=== PATIENT | female | born 1930 | race Caucasian/White ===

== ENCOUNTER 2019-09-12 13:03 | Inpatient (IN) ==
--- NOTE | 2019-09-12 14:15 | Diag Imaging Result Doc PS360 ---
EXAM: CHEST-2 VIEWS 09/12/2019 HISTORY: edema TECHNIQUE: PA and lateral chest COMMENT: There are bilateral pleural effusions. There is worsened bibasilar atelectasis compared to 07/04/2015. There is mild cardiomegaly. IMPRESSION: Atelectasis versus pneumonia with bilateral pleural effusions. The possibility of pulmonary edema cannot be excluded. Electronically signed by Azael Saul 09/12/2019 2:13 PM
[2019-09-12] MEDS ORDERED: LASIX IV ONE (14:20)
[2019-09-12 14:28] LABS: BASO# 0.01 X1000 (0.0-0.2); BASO% 0.3 % (0.0-0.8); EOS# 0.03 X1000 (0.0-0.7); EOS% 0.8 % (0.0-10.0); HEMATOCRIT 33.9 % (37.0-47.0); HEMOGLOBIN 10.5 g/dL (12.0-16.0); LYMPH# 0.86 X1000 (1.2-3.4); LYMPH% 22.9 % (20.5-51.1); MCH 27.4 PG (27-31); MCV 88.5 FL (81-99); MONO# 0.45 X1000 (0.11-0.59); MPV 10.8 FL (7.4-10.4); PLT 236 X1000 (130-400); RBC 3.83 XMIL (4.2-5.4); RDW 14.9 % (11.5-14.5); WBC 3.75 X1000 (4.8-10.8)
[2019-09-12 15:01] LABS: AGAP 10; ALB/GLOB RATIO 1.2; ALKALINE PHOSPHATASE 64 U/L (32-104); BUN 17 mg/dL (8-22); CALCIUM 8.7 mg/dL (8.8-10.2); CHLORIDE 97 mmol/L (98-107); COSMO 280; CREATININE 0.6 mg/dL (0.5-0.9); ESTIMATED GFR > 60; GLUCOSE 122 mg/dL (70-104); GOT 16 U/L (10-30); GPT 14 U/L (10-36); POTASSIUM 5.1 mmol/L (3.5-5.1); SODIUM 139 mmol/L (136-145); TCO2 32 mmol/L (25-35); TOTAL BILIRUBIN 0.69 mg/dL (0.20-1.00); TOTAL PROTEIN 7.4 g/dL (6.3-8.3)
[2019-09-12 15:11] LABS: INR 1.02; PROTIME 13.5 Seconds (11.0-16.0)
--- NOTE | 2019-09-12 15:32 | PROVIDER DOCUMENTATION ---
This chart was entered by Renea Banegas Scribe, acting as scribe for Apple Jauregui MD. HPI-General Adult - General Chief Complaint: Edema Stated Complaint: EDEMA/LEGS,DIABETIC Time Seen by Provider: 09/12/19 13:27 Source: patient Allergies/Adverse Reactions: Patient Allergies Allergy/AdvReac Type Severity Reaction Status Date / Time Penicillins Allergy HIVES Verified 09/12/19 14:11 Home Medications: Home Medication List Medication Instructions Recorded Confirmed Last Taken Type LISINOpril [Prinivil] 10 mg PO BID #0 tablet 11/28/14 09/12/19 04/24/16 Rx Metformin [Glucophage] 500 mg PO BID CC 07/04/15 09/12/19 04/24/16 History Furosemide [Lasix] 40 mg PO BID 14 Days #14 tab 09/12/19 Unknown Rx Potassium Chloride E.r. [Klor-Con] 40 meq PO DAILY #28 tab 09/12/19 Unknown Rx - History of Present Illness -Gen Adult Nature of Presenting Problems: Patient is an 89 y/o female presenting to the ED today c/o bilateral leg swelling. Patient reports onset of symptoms Thursday. Patient states she has been taking Lasix 40 mg but only intermittently. Patient reports she has taken the Lasix daily since onset. Patient reports she has also experienced some SOB and orthopnea. Patient c/o chills but has not checked her temperature to assess for fever. Patient denies history of CHF. Patient denies all other signs/symptoms. Location of Pain/Injury: reports: lower extremity (bilateral) Onset/Duration: reports: 2 days ago Associated Symptoms: reports: shortness of breath, other (edema bilateral lower extremities, orthopnea) Similar Symptoms Previously?: No Recently seen or treated by another doctor?: No Review of Systems - Adult - REVIEW OF SYSTEMS - ADULT Constitutional: reports: chills. denies: fever Eyes: reports: no symptoms reported Ears, Nose, Mouth & Throat: reports: no symptoms reported Cardiovascular: reports: edema, orthopnea. denies: chest pain Respiratory: reports: cough, shortness of breath Gastrointestinal: reports: no symptoms reported Genitourinary: reports: no symptoms reported Musculoskeletal: reports: no symptoms reported Integumentary: reports: no symptoms reported Neurological: reports: no symptoms reported Psychiatric: reports: no symptoms reported Endocrine: reports: no symptoms reported Hematologic/Lymphatic: reports: no symptoms reported Allergic/Immunologic: reports: no symptoms reported All Other Systems: Reviewed and Negative Past History - Adult - PAST MEDICAL HISTORY-ADULT Review of Records: reports: Old Records Reviewed, Nursing Assessment Review, Medications Reviewed, Social history reviewed & non-contributory. Major Childhood Illnesses: reports: denies history Cardiovascular: reports: denies history, HTN Respiratory: reports: denies history Gastrointestinal: reports: denies history Obstetrical/Gynecological: reports: denies history Genitourinary: reports: denies history Musculoskeletal: reports: denies history Neurological: reports: denies history Endocrine/Immune: reports: Diabetes Other Conditions: reports: denies history - PRIOR SURGERIES/PROCEDURES Surgical/Procedure History: reports: , other (cataract) - PRIOR HOSPITALIZATIONS Prior Hospitalizations: reports: for other non-related - IMMUNIZATION STATUS Childhood Immunizations: See Nurse Assessment Flu Vaccine: See Nurse Assessment - FAMILY HISTORY Family History: reviewed, not pertinent Physical Exam-General - PHYSICAL EXAM-ADULT Initial Vital Signs Reviewed: Yes - CONSTITUTIONAL General Appearance: appears well, alert, no apparent distress - EYES Eyes: PERRL/EOMI - HEAD, EARS, NOSE, MOUTH & THROAT HENMT: normocephalic/atraumatic, moist mucous membranes, normal ENT inspection - NECK Neck: non-tender, full range of motion, supple - RESPIRATORY Respiratory: no respiratory distress, no accessory muscle use, crackles (at bases bilaterally) - CARDIOVASCULAR Cardiovascular: regular rate, rhythm, no gallop, systolic murmur - GASTROINTESTINAL (ABDOMEN) Abdominal Exam: non tender, soft - MUSCULOSKELETAL Back Exam: normal inspection, no CVA tenderness, no vertebral tenderness Extremity: normal range of motion, non-tender, normal gait, pedal edema (2-3+ pitting with oozing up to level of knees) - SKIN Integumentary: normal color, normal turgor, warm/dry - NEUROLOGIC Neurologic: grossly normal - PSYCHIATRIC Psych/Mental Status: normal mood/affect, normal thought content, normal thought process Progress - PLAN OF CARE/RESULTS Progress/Plan/Lab Results: Vital Signs - 8 hr 09/12/19 13:14 Temperature 97.6 F Pulse Rate 74 Respiratory Rate 20 Blood Pressure 146/81 O2 Sat by Pulse Oximetry 97 Dr Cortes had seen patient in the ED tracker and called to followup on her. We discussed results and he recommended DC with increasing her Lasix to BID and giving her potassium and following her up in 2 weeks. Patient initially ok with DC plan but then she became concerned and states that she sleeps sitting up in her wheelchair because she cannot get to her bed because there is too much stuff around it. She states that her son lives with her but is never there at her bedtime and with the lasix and her house crowded with boxes and stuff she cannot get around to get to the bathroom. I counseled her on the risk for coming in the hospital but she stated that she cannot go home, however she also stated that she is not interested in placement. She has home health. I called Dr Cortes back who spoke to the patient and he stated he would admit the patient. Further orders to be placed per him. Result Diagrams: 09/12/19 14:08 09/12/19 14:08 - XRAY 1 XRAY Study: Chest Impression: See EMR Report (EXAM: CHEST-2 VIEWS 09/12/2019 HISTORY: edema T ECHNIQUE: PA and lateral chest COMMENT: There are bilateral pleural effusions. There is worsened bibasilar atelectasis compared to 07/04/2015. There is mild cardiomegaly. IMPRESSION: Atelectasis versus pneumonia with bilateral pleural effusions. The possibility of pulmonary edema cannot be excluded. Electronically signed by Azael Saul 09/12/2019 2:13 PM 09/12/19 1413 Interpreting Physician: Azael Saul MD Dictated Date/Time: 09/12/19 1412 cc: Apple Jauregui MD; Santiago Cortes MD) Departure - Departure Date of Disposition Decision: 09/12/19 Time of Disposition Decision: 15:28 DIAGNOSIS: Congestive heart failure, Unsatisfactory living conditions Disposition: HOME 01 Certified Medical Emergency: Emergent Condition: Stable - Critical Care Note This patient required my direct & personal management of CC.: No Attestation - Physician/ HARRY Attestation Patient care was provided by Advanced Practice Provider:: No The physician spent face to face time with patient:: Yes Advanced Practice Provider documentation review:: Supervising physician onsite and consulted in the evaluation and care of this patient. The physician did have a face to face encounter with the patient. This chart was documented by the indicated yifanibe (Renea Banegas, Leonel) and accurately reflects the services I performed and decisions made by me, Apple Jauregui MD, as attested by the provider's signature.
[2019-09-12] MEDS ORDERED: ZOFRAN IV PRN (17:10)
[2019-09-12] MEDS ORDERED: TYLENOL PO PRN (17:10)
[2019-09-12] MEDS: LASIX IV SCH (18:39)
[2019-09-12] MEDS: GLUCOPHAGE PO SCH (18:52)
[2019-09-12] MEDS: PRINIVIL PO SCH (21:44)
[2019-09-13] MEDS: LASIX IV SCH ×2 (05:08→17:27)
[2019-09-13] MEDS: PRILOSEC PO SCH (06:42)
[2019-09-13 07:51] LABS: HEMOGLOBIN A1C 5.5 % (4.8-6.0)
--- NOTE | 2019-09-13 07:55 | EKG Report ---
Test Performed on : 09/13/2019 07:37:47 AM Test Reason : chest pain Blood Pressure : / mmHG Vent. Rate : 081 BPM Atrial Rate : 081 BPM P-R Int : 158 ms QRS Dur : 098 ms QT Int : 392 ms P-R-T Axes : 048 096 028 degrees QTc Int : 455 ms Sinus rhythm. with premature supraventricular complexes. Rightward axis Nonspecific ST abnormality Abnormal ECG When compared with ECG of 25-APR-2016 11:47, premature supraventricular complexes. are now present Confirmed by Margarita MARTÍNEZ, David ([id number]) on 09/13/2019 8:34:36 AM
[2019-09-13 08:05] LABS: AGAP 11; BUN 17 mg/dL (8-22); CALCIUM 8.6 mg/dL (8.8-10.2); CHLORIDE 95 mmol/L (98-107); CK PROFILE 52 U/L (24-173); COSMO 280; CREATININE 0.7 mg/dL (0.5-0.9); ESTIMATED GFR > 60; GLUCOSE 120 mg/dL (70-104); POTASSIUM 3.5 mmol/L (3.5-5.1); SODIUM 139 mmol/L (136-145); TCO2 33 mmol/L (25-35)
[2019-09-13 08:11] LABS: T4 7.65 ug/dL (4.60-12.00); TSH 1.43 uIUmL (0.27-4.20)
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
[2019-09-13] MEDS: GLUCOPHAGE PO SCH ×2 (09:31→17:27)
[2019-09-13] MEDS: PRINIVIL PO SCH ×3 (09:32→20:55)
--- NOTE | 2019-09-13 12:35 | PROGRESS NOTE ---
DATE: 09/13/2019 SUBJECTIVE: She says she feels a little better. She did not really feel like she ever really was real short of breath. Her legs are less swollen. OBJECTIVE: Vital Signs: She remains afebrile, temperature 98.1 degrees, pulse 69, respirations 15, blood pressure 101/61. HEENT: Pupils are equal and round. Lungs: Clear in all lung galvez. Cardiovascular: Regular rhythm and rate without murmur or S3. Abdomen: Soft. Skin: Warm and dry. ASSESSMENT AND PLAN: 1. Chronic venous insufficiency with increased swelling. There are no active ulcers or lesions and so continue to diurese. 2. Diabetes mellitus type 2. I think her sugars have been fairly well controlled. We did check a hemoglobin A1c, and it was 5.5, so she may not even have diabetes or just borderline diabetes. It has been well controlled. 3. Creatinine 0.7. Renal function looks good. 4. Cellulitis and I suspect most of that is just topical irritation. She is not on any antibiotic at this time, and I am going to continue present regimen. I will have physical therapy work with her, have social media assistant looking and see what our options are for discharge. cc: Santiago Cortes MD
--- NOTE | 2019-09-13 14:08 | ECHO REPORT ---
ORDER DATE: 09/13/2019 INDICATION: CHF, evaluate LV function. FINDINGS: 1. Right atrium is enlarged at 4.9 cm. 2. Mild tricuspid regurgitation. RV systolic pressure of 59, suggesting pulmonary hypertension. 3. The right ventricle was difficult to visualize but appears to have normal size and systolic function. 4. No clear evidence of pulmonic insufficiency. 5. Severe left atrial enlargement with a volume index of 72. 6. No evidence of mitral valve prolapse. There is heavy mitral annular calcification. There is flow acceleration across the mitral valve, suggesting a moderate degree of stenosis with a peak gradient of 14 and a mean of 6.6. The valve area was 2.5 cm2 by pressure half-time. There is mild mitral regurgitation. 7. Normal left ventricular size at 3.8 cm. Suggestion of mild left ventricular hypertrophy with a wall thickness of 1.3 cm. This was extremely difficult to estimate given the poor images. LV systolic function appears preserved and greater than or equal to 55%. 8. There is severe restriction in motion of the aortic valve leaflets or cusps with heavy calcification. The peak gradient across the valve is 74 with a mean of 54, suggesting severe aortic stenosis. There does not appear to be any significant degree of insufficiency. 9. The aorta was poorly visualized. 10. There appears to be a small anterior pericardial effusion with no evidence of tamponade-type physiology. cc: MD Santiago Llanes MD
[2019-09-13] MEDS ORDERED: NS 250 ML IV ONE (21:07)
[2019-09-13] MEDS ORDERED: NS 250 ML ONE (22:35)
[2019-09-14] MEDS: PRILOSEC PO SCH ×2 (06:08→09:59)
[2019-09-14] MEDS: PRINIVIL PO SCH ×2 (10:00→21:06)
[2019-09-14] MEDS: GLUCOPHAGE PO SCH ×2 (10:00→17:34)
--- NOTE | 2019-09-14 10:55 | PROGRESS NOTE ---
DATE: 09/14/2019 SUBJECTIVE: Ms. Cho says she is a little more short of breath today, but her feet have gone down quite a bit. In fact, there is no edema right now. OBJECTIVE: Vital Signs: Blood pressures, the last several, 110/58, 87/39, 115/50, and 120/53. Temp is 98.2 degrees. HEENT: Her pupils are equal and round. Lungs: Clear in all lung galvez. Neck: No distended neck veins. Cardiovascular: Regular rhythm and rate without murmur or S3. Abdomen: Soft. Extremities: No pedal edema. IMAGING: Echocardiogram done on 09/13/2019: Normal left ventricular size, preserved ejection fraction of greater than 55%, severe restriction in motion of the aortic valve, so she has peak gradient 74 and a mean of 54, suggesting severe aortic stenosis. Aortic valve was poorly visualized. ASSESSMENT AND PLAN: 1. Chronic venous insufficiency. She has responded to diuresis. 2. It appears that she has severe aortic stenosis. I do not think we will back down on her diuresis at this point, and may get Cardiology to weigh in. 3. Renal function looks good. 4. Cellulitis and irritation. That seems to have resolved. LABORATORY DATA: Her hematocrit is 33, hemoglobin is 10, white blood cell count 3750, platelet count 236,000. Blood sugars 138, 120, 193, and 116. Her blood work from yesterday shows sodium 139, potassium 3.5, chloride 95, BUN 17, creatinine 0.7. Blood sugars 154, 104, 120. cc: Santiago Cortes MD
--- NOTE | 2019-09-14 11:58 | Diag Imaging Result Doc PS360 ---
EXAM: CHEST-2 VIEWS HISTORY: chf TECHNIQUE: Two views COMPARISON: 09/12/2019 FINDINGS: The heart is enlarged and there is pulmonary edema. [id number] sized bilateral pleural effusions. These are slightly larger than on the prior exam. There is basilar atelectasis and there may be underlying infiltrates as well. IMPRESSION: Interval worsening. Electronically signed by Hansel Ramirez 09/14/2019 11:55 AM
[2019-09-14] MEDS ORDERED: CARDIZEM IV ONE (23:59)
[2019-09-15] MEDS ORDERED: CARDIZEM 100 MG/NS 100 MG/100 ML IVPB IV SCH (00:15)
[2019-09-15] MEDS: PRINIVIL PO SCH ×2 (00:26→08:13)
[2019-09-15 00:44] LABS: BASO# 0.01 X1000 (0.0-0.2); BASO% 0.2 % (0.0-0.8); HEMATOCRIT 31.2 % (37.0-47.0); HEMOGLOBIN 9.6 g/dL (12.0-16.0); LYMPH# 0.87 X1000 (1.2-3.4); LYMPH% 15.6 % (20.5-51.1); MCH 27.4 PG (27-31); MCHC 30.8 g/dL (33-37); MCV 88.9 FL (81-99); MONO# 0.66 X1000 (0.11-0.59); MONO% 11.8 % (1.7-9.3); MPV 10.4 FL (7.4-10.4); NEUT# 4.05 X1000 (1.4-6.5); NEUT% 72.4 % (42.2-75.2); PLT 209 X1000 (130-400); RBC 3.51 XMIL (4.2-5.4); RDW 14.7 % (11.5-14.5); WBC 5.59 X1000 (4.8-10.8)
[2019-09-15 01:27] LABS: AGAP 15; ALB/GLOB RATIO 1.1; ALBUMIN 3.2 g/dL (3.5-5.0); ALKALINE PHOSPHATASE 60 U/L (32-104); BUN 18 mg/dL (8-22); CALCIUM 8.5 mg/dL (8.8-10.2); CHLORIDE 96 mmol/L (98-107); CK TOTAL 39 U/L (24-173); COSMO 282; CREATININE 0.6 mg/dL (0.5-0.9); ESTIMATED GFR > 60; GLUCOSE 140 mg/dL (70-104); GOT 15 U/L (10-30); GPT 15 U/L (10-36); MAGNESIUM 1.9 mg/dL (1.5-2.7); POTASSIUM 3.4 mmol/L (3.5-5.1); SODIUM 139 mmol/L (136-145); TCO2 28 mmol/L (25-35); TOTAL BILIRUBIN 0.66 mg/dL (0.20-1.00); TOTAL PROTEIN 6.1 g/dL (6.3-8.3)
[2019-09-15 01:33] LABS: FREE T4 1.39 ng/dL (0.93-1.70); TSH 2.16 uIUmL (0.27-4.20)
--- NOTE | 2019-09-15 05:56 | EKG Report ---
Test Performed on : 09/15/2019 04:59:35 AM Test Reason : rhythm change Blood Pressure : / mmHG Vent. Rate : 083 BPM Atrial Rate : 083 BPM P-R Int : 150 ms QRS Dur : 098 ms QT Int : 374 ms P-R-T Axes : 034 084 015 degrees QTc Int : 439 ms Sinus rhythm. with marked sinus arrhythmia. Nonspecific T wave abnormality Abnormal ECG When compared with ECG of 14-SEP-2019 23:45, (Unconfirmed) Sinus rhythm. has replaced Atrial fibrillation. Vent. rate has decreased BY 47 BPM Confirmed by Shalom MARTÍNEZ, Cael Campos ([id number]) on 09/19/2019 9:24:59 AM
[2019-09-15] MEDS: PRILOSEC PO SCH (06:37)
--- NOTE | 2019-09-15 06:59 | Diag Imaging Result Doc PS360 ---
EXAM: CHEST-PORTABLE 09/15/2019 HISTORY: sob TECHNIQUE: AP portable at 0024 COMMENT: There is cardiomegaly and diffuse alveolar and interstitial opacity particularly in the lung bases. There are presumably some pleural fluid collections bilaterally. Compared to the previous examination of 09/14/2019, the pulmonary opacity is slightly worse. IMPRESSION: Worsened pulmonary edema and pleural effusions. Electronically signed by Azael Saul 09/15/2019 6:56 AM
[2019-09-15] MEDS: GLUCOPHAGE PO SCH (08:13)
[2019-09-15 09:41] LABS: AGAP 12; BUN 17 mg/dL (8-22); CALCIUM 8.6 mg/dL (8.8-10.2); CHLORIDE 93 mmol/L (98-107); COSMO 273; CREATININE 0.5 mg/dL (0.5-0.9); ESTIMATED GFR > 60; GLUCOSE 128 mg/dL (70-104); POTASSIUM 3.6 mmol/L (3.5-5.1); SODIUM 135 mmol/L (136-145); TCO2 30 mmol/L (25-35)
[2019-09-15] MEDS ORDERED: LASIX IV ONE ×2 (11:05→16:28)
[2019-09-15] MEDS ORDERED: LASIX IV SCH (11:15)
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
[2019-09-15] MEDS: LOPRESSOR PO SCH ×2 (11:35→20:40)
--- NOTE | 2019-09-15 16:11 | Diag Imaging Result Doc PS360 ---
EXAM: CT ANGIOGRM PULMONARY ARTERIES INDICATION: SOB/HI D-D TECHNIQUE: This exam was performed using automated exposure control, adjustment of mA or kV according to patient size, and/or use of iterative reconstruction technique. Thin section axial images and 3-D MIPS were obtained. COMPARISON: None. FINDINGS: There is no evidence of pulmonary embolism. The aorta is under opacified but there is no evidence of thoracic aortic aneurysm or dissection as imaged. There is extensive aortic atherosclerotic calcification. There is extensive coronary artery calcification. There is cardiomegaly. There are calcified subcarinal lymph nodes indicating prior granulomatous disease. There is a moderate-sized pericardial effusion. There are bilateral large pleural effusions. There is associated significant atelectasis bilaterally, mainly involving the lower lobes. There is interstitial thickening suggesting edema. There is mild patchy airspace opacity at both upper lobes but also probably represents edema. However, a component of pneumonitis is possible. Limited views of the upper abdomen are essentially unremarkable. There is extensive thoracic spondylosis. IMPRESSION: 1.Bibasilar large effusions with associated significant atelectasis. 2.Interstitial edema and mild patchy airspace infiltrates near the lung apices as detailed above. 3.Cardiomegaly with a moderate-sized pericardial effusion. 4.No evidence of pulmonary embolism. Electronically signed by Calixto Haywood 09/15/2019 4:09 PM
--- NOTE | 2019-09-15 17:20 | PROGRESS NOTE ---
DATE: 09/15/2019 SUBJECTIVE: Ms. Cho is actually feeling pretty good, breathing comfortably. She had to be moved last night because she went into atrial fibrillation with rapid ventricular rate. She is concerned about being on Cardizem since the blood pressure medicine. We have explained to her that her echocardiogram suggest very severe aortic stenosis. Cardiology has evaluated and has offered for her to pursue possible transvascular aortic replacement. She is not sure she wants to do this. At the present time she wants to continue to pursue trying to go home. OBJECTIVE: She remains afebrile, temperature 98.2 degrees, pulse 68, respirations 18, blood pressure 140/65. Pupils are equal and round. Lungs are clear in all lung galvez. Cardiovascular: Regular rhythm and rate without murmur or S3. LABORATORY DATA: Blood sugars 128, 127 and 107. DIAGNOSTIC DATA: Pulmonary arteriogram shows bibasilar lung effusions with associated significant atelectasis, interstitial edema and mild patchy air spaces near the lung apices; cardiomegaly; moderate-size pericardial effusion; no evidence of pulmonary embolism. ASSESSMENT AND PLAN: 1. An 89-year-old with history of diabetes, hyperlipidemia and hypertension, wheelchair-bound, who was admitted with weakness, increased work of breathing and orthopnea. X-ray reveals pulmonary edema. Given Lasix and improved symptomatically. She apparently went into atrial fibrillation last night. She is back in sinus rhythm at this time. 2. Paroxysmal atrial fibrillation. Started on Cardizem drip. It appears that she is in normal sinus rhythm with frequent premature atrial contractions. Cardiology was stating she did not have atrial fibrillation but multiple premature atrial contractions. 3. Echocardiogram showed severe aortic stenosis with peak gradient across the aortic valve of 74 mmHg, mean gradient 54 mmHg suggesting severe aortic stenosis. Mitral valve area was 2.5 cm2 by pressure half-time and mean gradient was 6 mmHg. Heavy mitral annular calcification. added beta-blockers and cut back on her lisinopril. Heart failure has significantly improved medically. She wants to contemplate whether she wants to pursue intravascular aortic replacement. I think she is inclined not to do it at this point. She is on Prinivil 10 mg daily, Lopressor 25 mg b.i.d. and metformin 500 mg b.i.d. Her chest x-ray from this morning, worsened pulmonary edema and pleural effusions, so I think we will give her Lasix 40 mg intravenous. She was given 1 dose this morning and will probably continue that. We will check another chest x-ray and electrolytes in the morning. We started physical therapy. I think her plan is still wants to go home with home health. cc: Santiago Cortes MD MTDD
[2019-09-16] MEDS: PRILOSEC PO SCH (06:27)
[2019-09-16 06:57] LABS: AGAP 12; BUN 14 mg/dL (8-22); CALCIUM 8.5 mg/dL (8.8-10.2); CHLORIDE 94 mmol/L (98-107); COSMO 274; CREATININE 0.5 mg/dL (0.5-0.9); ESTIMATED GFR > 60; GLUCOSE 102 mg/dL (70-104); MAGNESIUM 1.9 mg/dL (1.5-2.7); POTASSIUM 3.1 mmol/L (3.5-5.1); SODIUM 137 mmol/L (136-145); TCO2 31 mmol/L (25-35)
--- NOTE | 2019-09-16 07:21 | Diag Imaging Result Doc PS360 ---
EXAM: CHEST-PORTABLE INDICATION: CHF, aortic stenosis TECHNIQUE: One view COMPARISON: 09/15/2019 FINDINGS: Bilateral interstitial and airspace consolidations at the lower lung zones are approximately stable. Bilateral pleural fluid collections are grossly stable. No new consolidation is identified. Cardiac silhouette is stable. IMPRESSION: Stable chest. Electronically signed by Calixto Haywood 09/16/2019 7:18 AM
[2019-09-16] MEDS: LOPRESSOR PO SCH ×2 (08:55→20:22)
[2019-09-16] MEDS: PRINIVIL PO SCH (08:55)
[2019-09-16] MEDS: LASIX IV SCH (08:55)
[2019-09-16] MEDS ORDERED: LASIX PO SCH (09:00)
[2019-09-16] MEDS ORDERED: KLOR-CON PO ONE (14:07)
--- NOTE | 2019-09-16 18:24 | PROGRESS NOTE ---
DATE: 09/16/2019 SUBJECTIVE: Ms. Amaya just does not feel real good. Her breathing seems to be okay and at rest she does okay, but she would like to get up and stir around a little bit. She has a lot of questions about whether she should pursue aortic valve therapy. OBJECTIVE: Vital signs: She is afebrile, temperature 97.3 degrees, pulse 82, respirations 24, blood pressure today a little low at 80/50. It has been running a little higher. HEENT: Pupils are equal and round. Lungs: Clear in all lung galvez. Cardiovascular Exam: Regular rhythm and rate without murmur or S3. Urine output is 2100 mL. Blood sugar 113, 103, 125. Chest x-ray from today: Stable chest. Bilateral interstitial airspace consolidations in the lower lung zones approximately stable. Bilateral pleural fluid collections grossly stable. No new consolidation identified. She had a pulmonary arteriogram. No pulmonary embolism. She has bibasilar large effusions with associated significant atelectasis, interstitial edema, mild patchy airspace infiltrates in the lung apices and cardiomegaly, moderate-sized pericardial effusion. ASSESSMENT AND PLAN: 1. She has a history of diabetes, hyperlipidemia, hypertension. Wheelchair bound and had increased shortness of breath. Chest x-ray reveals pulmonary edema. The Lasix has improved her swelling in her legs significantly. Blood pressure dropping a little bit. I want to follow her renal function closely. 2. EKG shows normal sinus rhythm, frequent premature atrial contractions, so she did not really go in atrial fibrillation but frequent atrial contractions. 3. Echocardiogram shows severe aortic stenosis and consider her for transcatheter aortic valve replacement, and she is thinking about that. 4. Premature atrial contractions. She is on beta yumiko. 5. Hypertension. Cut back on her lisinopril. We will try and get her up. Continue physical therapy. Follow her electrolytes. cc: Santiago Cortes MD
[2019-09-17 05:54] LABS: BASO# 0.01 X1000 (0.0-0.2); BASO% 0.2 % (0.0-0.8); EOS# 0.06 X1000 (0.0-0.7); EOS% 1.3 % (0.0-10.0); HEMATOCRIT 33.8 % (37.0-47.0); HEMOGLOBIN 10.3 g/dL (12.0-16.0); LYMPH% 21.4 % (20.5-51.1); MCH 27.1 PG (27-31); MCHC 30.5 g/dL (33-37); MCV 88.9 FL (81-99); MONO# 0.69 X1000 (0.11-0.59); MONO% 14.8 % (1.7-9.3); MPV 10.2 FL (7.4-10.4); NEUT# 2.91 X1000 (1.4-6.5); NEUT% 62.3 % (42.2-75.2); PLT 249 X1000 (130-400); RDW 14.6 % (11.5-14.5); WBC 4.67 X1000 (4.8-10.8)
[2019-09-17 06:15] LABS: AGAP 7; BUN 17 mg/dL (8-22); CALCIUM 8.4 mg/dL (8.8-10.2); CHLORIDE 92 mmol/L (98-107); COSMO 271; CREATININE 0.6 mg/dL (0.5-0.9); ESTIMATED GFR > 60; GLUCOSE 122 mg/dL (70-104); MAGNESIUM 2.1 mg/dL (1.5-2.7); POTASSIUM 3.3 mmol/L (3.5-5.1); SODIUM 134 mmol/L (136-145); TCO2 35 mmol/L (25-35)
[2019-09-17] MEDS: PRILOSEC PO SCH (06:25)
[2019-09-17] MEDS: LASIX IV SCH (09:32)
[2019-09-17] MEDS: PRINIVIL PO SCH (09:33)
[2019-09-17] MEDS: LOPRESSOR PO SCH ×2 (09:33→20:09)
--- NOTE | 2019-09-17 13:37 | PROGRESS NOTE ---
DATE: 09/17/2019 SUBJECTIVE: She reports she does feel a little better today. Blood pressure seems to have come up a little bit. I did back down on her beta yumiko. Seems like her breathing is better, although she does still have some shortness of breath. OBJECTIVE: Vital signs: Remains afebrile, temperature 97.3 degrees, pulse 70, respirations 20, blood pressure 117/57. HEENT: Pupils are equal and round. Lungs: Clear in all lung galvez. Cardiovascular: Regular rhythm and rate without murmur or S3. Abdomen: Soft. Skin: Warm and dry. Urine output is 1700 mL. LABORATORY DATA: Blood sugars 125, 100 and 150, so sugars are well controlled. IMAGING: Chest x-ray from yesterday. Stable chest, bilateral interstitial and airspace consolidations at the lower lung zones and these appear stable. Bilateral pleural fluid collection appears stable as well. No new consolidation. ASSESSMENT AND PLAN: 1. Severe aortic stenosis. She is contemplating whether she wants to pursue aggressive therapy. I am encouraging her to at least go and listen to a cardiovascular surgeon and see if it is something she would be interested in, transvalvular aortic replacement. She does feel better. Seems to be doing a little bit better. Her blood pressures, the last several, 152/74, 93/52, 108/55, 117/57, so we are diuresing her with Lasix. 2. She appears to remain sinus rhythm. She was moved to [facility]. There was concern that she was having atrial fibrillation, however, this appeared to be sinus tachycardia with frequent PACs. 3. Premature atrial contractions. Aware. 4. Hypertension. REVIEW OF ORDERS: I do not see any change. I think she can move to the floor and keep her here another 48 hours. I am hoping to discharge her on Thursday. cc: Santiago Cortes MD
--- NOTE | 2019-09-17 14:20 | Diag Imaging Result Doc PS360 ---
EXAM: CHEST-2 VIEWS 09/17/2019 HISTORY: chf TECHNIQUE: PA and lateral chest COMMENT: There are bilateral pleural effusions. There is lower lobe opacity bilaterally which has improved somewhat since 09/16/2018. There is platelike atelectasis in the lingula. IMPRESSION: Improved pleural effusions and basilar opacities. Electronically signed by Azael Saul 09/17/2019 2:17 PM
--- NOTE | 2019-09-17 15:29 | CARDIOLOGY PROGRESS NOTE ---
DATE: 09/17/2019 SUBJECTIVE: She reports continued issues with shortness of breath. She has no complaints otherwise, no pain complaints. PHYSICAL: She is afebrile. Heart rates 70, blood pressure 117/57.General: She is in no acute distress. Cardiovascular: She has a 2/6 systolic murmur best heard at the right upper sternal border. She has no lower extremity edema. Chest: Clear to auscultation bilaterally. No increased work of breathing. Abdomen: Soft, nontender. PERTINENT DATA: Sodium 134, potassium 3.3, BUN 17, creatinine 0.6, her mag level is 2.1. ASSESSMENT: Ms. Cho is a 89-year-old female with severe aortic stenosis. PLAN: She continues on MIKAEL inhibitors, beta blockers and IV Lasix. She seems to be diuresing reasonably well. She has had limited symptom improvement. She is still contemplating possible TAVR. cc: MD Santiago Llanes MD
[2019-09-18] MEDS: PRILOSEC PO SCH (06:06)
[2019-09-18 06:38] LABS: AGAP 11; BUN 17 mg/dL (8-22); CALCIUM 8.4 mg/dL (8.8-10.2); CHLORIDE 95 mmol/L (98-107); COSMO 279; CREATININE 0.5 mg/dL (0.5-0.9); ESTIMATED GFR > 60; GLUCOSE 125 mg/dL (70-104); POTASSIUM 3.4 mmol/L (3.5-5.1); SODIUM 138 mmol/L (136-145); TCO2 32 mmol/L (25-35)
--- NOTE | 2019-09-18 06:52 | Diag Imaging Result Doc PS360 ---
EXAM: CHEST-PORTABLE 09/18/2019 HISTORY: CHF TECHNIQUE: AP portable at 0450 COMMENT: There is cardiomegaly. There are bilateral pleural effusions. There is worsening interstitial pulmonary edema compared to 09/17/2019. There continues to be atelectasis or pneumonia in both lower lobes and the lingula. IMPRESSION: Worsening pulmonary edema. Electronically signed by Azael Saul 09/18/2019 6:49 AM
[2019-09-18] MEDS: LOPRESSOR PO SCH ×2 (08:13→20:19)
[2019-09-18] MEDS: PRINIVIL PO SCH (08:13)
[2019-09-18] MEDS: GLUCOPHAGE PO SCH ×2 (08:13→17:26)
[2019-09-18] MEDS: LASIX IV SCH (08:13)
--- NOTE | 2019-09-18 13:20 | PROGRESS NOTE ---
DATE: 09/18/2019 SUBJECTIVE: Ms. Cho is feeling better today, and she decided that she would like to go to rehab, would like to go to [facility] if she can. OBJECTIVE: Vital Signs: Afebrile, temperature 98 degrees, pulse 70, respirations 16, blood pressure 103/50. HEENT: Pupils are equal and round. Lungs: Clear in all lung galvez. Cardiovascular: Regular rhythm and rate without murmur or S3. Abdomen: Soft. Skin: Warm and dry. IMAGING AND LABORATORY DATA: Blood sugars 110, 165, 116, 184. Chest x-ray: Worsening pulmonary edema on x-ray, bilateral pleural effusions. ASSESSMENT AND PLAN: 1. She has severe aortic stenosis. Continue angiotensin-converting enzyme inhibitors and beta blockers. Seems to be diuresing reasonably well. 2. General weakness, deconditioning, and underlying osteoarthritis. I think she would benefit from trying to go to rehab. 3. Remains in sinus rhythm with frequent premature atrial contractions. 4. Hypertension. Blood pressures look like they are doing well. She is on Prinivil 10 mg daily, metformin 500 mg twice daily, Lopressor 12.5 mg twice daily, and gets Lasix 40 mg every morning. cc: Santiago Cortes MD
[2019-09-19] MEDS: PRILOSEC PO SCH (06:05)
[2019-09-19 06:37] LABS: BASO# 0.07 X1000 (0.0-0.2); BASO% 1.4 % (0.0-0.8); EOS# 0.06 X1000 (0.0-0.7); EOS% 1.2 % (0.0-10.0); HEMATOCRIT 34.8 % (37.0-47.0); HEMOGLOBIN 10.6 g/dL (12.0-16.0); LYMPH% 22.6 % (20.5-51.1); MCH 27.7 PG (27-31); MCHC 30.5 g/dL (33-37); MCV 90.9 FL (81-99); MONO# 0.74 X1000 (0.11-0.59); MONO% 15.2 % (1.7-9.3); MPV 10.7 FL (7.4-10.4); NEUT% 59.6 % (42.2-75.2); PLT 224 X1000 (130-400); RBC 3.83 XMIL (4.2-5.4); RDW 14.7 % (11.5-14.5); WBC 4.87 X1000 (4.8-10.8)
[2019-09-19] MEDS: PRINIVIL PO SCH (10:04)
[2019-09-19] MEDS: GLUCOPHAGE PO SCH ×2 (10:04→17:35)
[2019-09-19] MEDS: LASIX IV SCH (10:04)
[2019-09-19] MEDS: LOPRESSOR PO SCH ×2 (10:04→20:57)
[2019-09-19] MEDS ORDERED: ASPIRIN PO SCH (11:15)
--- NOTE | 2019-09-19 11:50 | CARDIOLOGY PROGRESS NOTE ---
DATE: 09/19/2019 PROBLEM LIST: 1. Severe critical aortic stenosis with a peak gradient of the aortic valve of 74 mmHg, mean gradient of 54 mmHg, with severe critical aortic stenosis, mitral annular calcification severe with a mitral valve area of 2.5 cm2, mean gradient of 6 mmHg, ejection fraction 55%. 2. Recent congestive heart failure. 3. Diabetes. 4. Hypertension. DIAGNOSTIC DATA: She had a pulmonary arteriogram on 09/15/2019. Bilateral large pleural effusions with atelectasis, interstitial edema, suggestive of congestive heart failure. There was no pulmonary embolism. CURRENT LABORATORY EXAMINATION: Sodium 138, potassium 3.4, BUN 17, creatinine 0.7. WBC 4.87, hemoglobin 10.6, hematocrit 34.8, platelet count of 224,000. Chest x-ray on 09/18/2019 revealed persistent edema. PHYSICAL EXAMINATION: Blood pressure was 109/47. Cardiovascular: First and second heart sounds were heard. There was an ejection systolic murmur. Respiratory System: Bibasilar inspiratory crepitations. Abdomen: Soft, nontender. There was no guarding or rigidity. Bowel sounds were heard. Central Nervous System: Alert and was moving all 4 extremities. Examination of extremities revealed no pedal edema. CURRENT MEDICATIONS: Include: 1. Lasix 40 mg IV daily. 2. Prinivil 10 mg a day. 3. Metformin 500 mg p.o. b.i.d. 4. Metoprolol 12.5 mg p.o. b.i.d. 5. Omeprazole 40 mg a day. 6. Zofran as needed. 7. Aspirin 81 mg a day. ASSESSMENT AND PLAN: I had a detailed discussion with the patient and her family. She has persistent heart failure. However, has improved significantly and I have recommended that she consider transfer to [facility] for transcatheter aortic valve replacement evaluation. During this hospitalization, patient is willing to be transferred R/B/A explained in detail to patient and family. cc: MD Santiago Vasquez MD [facility]
--- NOTE | 2019-09-19 18:03 | PROGRESS NOTE ---
DATE: 09/19/2019 SUBJECTIVE: Ms. Downey, Dr. Snowden had discussed with the family and she wants to pursue trying to get her aortic valve replaced, a transaortic valvular replacement, so plan is to transfer her to [place]. OBJECTIVE: Vital Signs: Temperature is 98.2 degrees, pulse 77, respirations 18, blood pressure 84/42. Lungs: Clear anterolateral and posterior. Cardiovascular: Regular rhythm and rate without murmur or S3. Abdomen: Soft skin is warm and dry. ASSESSMENT AND PLAN: 1. Recommend she consider transfer to [place] for transcatheter aortic valve replacement during hospitalization. We will transfer her to [facility] and that is explained to the family. She has critical aortic stenosis. 2. Recent congestive heart failure. 3. Diabetes mellitus type 2. 4. Hypertension. 5. Osteoarthritis. 6. General weakness. cc: Santiago Cortes MD
[2019-09-19 20:59] VITALS: BP 95/58
--- NOTE | 2019-09-23 14:58 | DISCHARGE SUMMARY ---
ADMISSION DATE: 09/12/2019 DISCHARGE DATE: 09/19/2019 HISTORY: This is an 89-year-old white female patient of mine. She had more swelling in her feet and complaining of more shortness of breath, trouble getting around. Her friend was concerned, not able to walk and ambulate. She denied any chest pain. Denied palpitations. She has the usual swelling in her lower extremities and it seemed to be worse. PAST MEDICAL HISTORY: 1. Diabetes mellitus type 2. 2. Hyperlipidemia. 3. Hypertension. 4. Right forearm fracture in 1986. 5. Hip fracture, admitted back in November 2013. 6. 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 Eventually got elective total knee arthroplasty and has had difficulty with weightbearing and strength. HOSPITAL COURSE: So was admitted with chronic venous insufficiency, increased shortness of breath, and an echocardiogram found she had severe aortic stenosis. We followed her blood sugars with the diabetes and we diuresed her carefully and Cardiology was involved. Pulmonary arteriogram did not show any pulmonary embolism. Dr. Snowden for Cardiology evaluated and felt she may benefit from a transaortic valvular replacement and we began some physical therapy and she agreed to be transferred to [facility] for further evaluation for an aortic valve replacement and she was transferred on 09/19/2019 at 23:30. cc: Santiago Cortes MD
== END 2019-09-19 23:33 | disposition short-term general hospital (02) | DRG 293 ==
LOC: ED 13:03 → EDIPHOLD 17:02 → 3N 17:33 → 2N 09-15 00:46 → 1N 09-17 18:35
PROVIDERS: ADMIT Emergency Medicine; ATTEND Emergency Medicine

== ENCOUNTER 2019-10-11 15:07 | Inpatient (IN) ==
[2019-10-11] MEDS ORDERED: ASPIRIN PO ONE (15:23)
[2019-10-11] MEDS ORDERED: NS 1,000 ML IV ONE ×2 (15:24→18:31)
[2019-10-11] MEDS ORDERED: CORDARONE IV ONE ×2 (15:24→16:48)
[2019-10-11] MEDS ORDERED: LASIX IV ONE (15:25)
--- NOTE | 2019-10-11 15:28 | EKG Report ---
Test Performed on : 10/11/2019 3:16:16 PM Test Reason : afib Blood Pressure : / mmHG Vent. Rate : 142 BPM Atrial Rate : 136 BPM P-R Int : 000 ms QRS Dur : 094 ms QT Int : 314 ms P-R-T Axes : 000 112 -19 degrees QTc Int : 483 ms Atrial fibrillation. with rapid ventricular response. Right axis deviation Right ventricular hypertrophy Nonspecific ST and T wave abnormality Abnormal ECG When compared with ECG of 15-SEP-2019 04:59, Atrial fibrillation. has replaced Sinus rhythm. Vent. rate has increased BY 59 BPM Unconfirmed Result
--- NOTE | 2019-10-11 15:48 | Diag Imaging Result Doc PS360 ---
EXAM: CHEST-PORTABLE HISTORY: sob TECHNIQUE: Single view COMPARISON: 09/18/2019 FINDINGS: The lungs are well expanded. The heart remains enlarged. There are increased interstitial markings in the mid lungs and right base. These are actually less pronounced than they were on the prior exam. Interval decrease in the size of the right effusion. Vascular prominence has decreased. IMPRESSION: Interval improvement Electronically signed by Hansel Ramirez 10/11/2019 3:46 PM
[2019-10-11 16:35] LABS: HEMATOCRIT 31.7 % (37.0-47.0); HEMOGLOBIN 9.7 g/dL (12.0-16.0); LYMPH# 0.53 X1000 (1.2-3.4); MCH 26.4 PG (27-31); MCHC 30.6 g/dL (33-37); MCV 86.1 FL (81-99); MONO# 0.41 X1000 (0.11-0.59); MONO% 8.5 % (1.7-9.3); MPV 10.5 FL (7.4-10.4); NEUT# 3.87 X1000 (1.4-6.5); NEUT% 80.5 % (42.2-75.2); PLT 262 X1000 (130-400); RBC 3.68 XMIL (4.2-5.4); RDW 14.9 % (11.5-14.5); WBC 4.81 X1000 (4.8-10.8)
[2019-10-11 16:41] LABS: INR 0.98; PROTIME 13.1 Seconds (11.0-16.0)
[2019-10-11 16:42] LABS: PTT 35.5 Seconds (22.3-41.8)
[2019-10-11] MEDS ORDERED: LANOXIN IV ONE (16:48)
[2019-10-11 17:02] LABS: AGAP 14; ALB/GLOB RATIO 0.8; ALKALINE PHOSPHATASE 66 U/L (32-104); BUN 23 mg/dL (8-22); CALCIUM 8.3 mg/dL (8.8-10.2); CHLORIDE 91 mmol/L (98-107); CK PROFILE 46 U/L (24-173); COSMO 268; CREATININE 0.6 mg/dL (0.5-0.9); ESTIMATED GFR > 60; GLUCOSE 154 mg/dL (70-104); GOT 23 U/L (10-30); GPT 15 U/L (10-36); MAGNESIUM 1.8 mg/dL (1.5-2.7); POTASSIUM 5.1 mmol/L (3.5-5.1); SODIUM 130 mmol/L (136-145); TCO2 25 mmol/L (25-35); TOTAL PROTEIN 6.7 g/dL (6.3-8.3)
[2019-10-11] MEDS ORDERED: TAMIFLU PO ONE (17:14)
[2019-10-11] MEDS ORDERED: VANCOMYCIN 1 GM/NS 1 GM/250 ML IVPB IV ONE (17:14)
[2019-10-11 17:15] LABS: ALLEN TEST YES; BE 2.3 mmoll (-3.0-3.0); BLOOD TYPE ARTERIAL; HCO3-(ACT) 26.7 mmoll (20.0-26.0); METHB 1.3 % (0.0-1.5); O2(CT) 12.8 mL/dL (15.0-23.0); O2HB 96.6 % (95.0-99.0); PCO2(98.6) 38 mmHg (35-45); PO2(98.6) 172 mmHg (60-100); SAMPLE BLOOD; SAO2 99.8 % (95.0-100.0); THB 9.1 g/dL (11.5-17.4); pH(98.6) 7.45 (7.35-7.45)
[2019-10-11] MEDS ORDERED: MAXIPIME 1 GM in NS 50 ML IV ONE (17:15)
[2019-10-11 17:16] LABS: MODALITY CANNULA
--- NOTE | 2019-10-11 18:00 | PROVIDER DOCUMENTATION ---
This chart was entered by Vero Tavarez Scribe, acting as scribe for Ralf Cuevas MD. HPI-Respiratory General - General Stated Complaint: SOB Time Seen by Provider: 10/11/19 15:15 Source: patient, EMS (first response) Allergies/Adverse Reactions: Patient Allergies Allergy/AdvReac Type Severity Reaction Status Date / Time Penicillins Allergy HIVES Verified 09/12/19 14:11 Home Medications: Home Medication List Medication Instructions Recorded Confirmed Last Taken Type LISINOpril [Prinivil] 10 mg PO BID #0 tablet 11/28/14 09/12/19 04/24/16 Rx Metformin [Glucophage] 500 mg PO BID CC 07/04/15 09/12/19 04/24/16 History Potassium Chloride E.r. [Klor-Con] 40 meq PO DAILY #28 tab 09/12/19 Unknown Rx - History of Present Illness-Resp Nature of Presenting Problem: 89 yowf presents to the ed with c/o sob and cough for 2 days. pt is currently in rehab due to wound on buttock. pt on exam is afib rvr and has hx. pt on exam is in mild distress and pursed lip breathing on exam Quality of Pain: reports: none Severity in ED: reports: mild Onset/Duration: reports: 2 days ago Timing: reports: still present, intermittent, getting worse Cough Quality/Degree: reports: mild, dry cough Episode Frequency: occasional episodes Current Respiratory Medication Therapy: Initiated see nurses note Modifying Factors: improves with: oxygen, sitting upright. worse with: exertion, coughing Associated Symptoms: reports: cough, shortness of breath Similar Symptoms Previously?: Yes Recently seen or treated by another doctor?: No Review of Systems - Adult - REVIEW OF SYSTEMS - ADULT Constitutional: denies: chills, fever Eyes: reports: no symptoms reported Ears, Nose, Mouth & Throat: reports: no symptoms reported Cardiovascular: reports: see HPI, edema. denies: chest pain, palpitations Respiratory: reports: see HPI, cough, dyspnea on exertion, shortness of breath Gastrointestinal: denies: abdominal pain, diarrhea, nausea, vomiting Genitourinary: reports: no symptoms reported Musculoskeletal: denies: back pain, neck pain Integumentary: reports: no symptoms reported Neurological: denies: dizziness/vertigo, headache/migraines Psychiatric: reports: no symptoms reported Endocrine: reports: no symptoms reported Hematologic/Lymphatic: reports: no symptoms reported Allergic/Immunologic: reports: no symptoms reported All Other Systems: Reviewed and Negative Past History - Adult - PAST MEDICAL HISTORY-ADULT Review of Records: reports: Old Records Reviewed, Nursing Assessment Review, Medications Reviewed, Social history reviewed & non-contributory. Major Childhood Illnesses: reports: denies history Cardiovascular: reports: A-Fib, aortic disease (stenosis), HTN Respiratory: reports: denies history Gastrointestinal: reports: denies history Obstetrical/Gynecological: reports: denies history Genitourinary: reports: denies history Musculoskeletal: reports: denies history Neurological: reports: denies history Psychiatric: reports: denies history Endocrine/Immune: reports: Diabetes Diabetes Type: Type 2 Other Conditions: reports: cataract/glaucoma - PRIOR SURGERIES/PROCEDURES Surgical/Procedure History: reports: , joint replacement, other (cataract) - PRIOR HOSPITALIZATIONS Prior Hospitalizations: reports: for other non-related - IMMUNIZATION STATUS Childhood Immunizations: See Nurse Assessment Flu Vaccine: See Nurse Assessment - FAMILY HISTORY Family History: reviewed, not pertinent - SOCIAL HISTORY Smoking: denies Substance Use: denies Living Situation: care facility (at [facility]) Physical Exam-General - PHYSICAL EXAM-ADULT Initial Vital Signs Reviewed: Yes - CONSTITUTIONAL General Appearance: alert, mild distress - EYES Eyes: PERRL/EOMI, pink conjunctivae - HEAD, EARS, NOSE, MOUTH & THROAT HENMT: moist mucous membranes - NECK Neck: non-tender, full range of motion, supple, normal inspection - RESPIRATORY Respiratory: chest non-tender, respiratory distress (mild), crackles, rhonchi, increased rate (28) - CARDIOVASCULAR Cardiovascular: systolic murmur, irregularly irregular (155) - CHEST (BREASTS) Chest/Breast: deferred - GASTROINTESTINAL (ABDOMEN) Abdominal Exam: normal bowel sounds, non tender, soft - GENITOURINARY Female Genitalia/Pelvic Exam: deferred Rectal Exam: deferred Hemoccult Exam: deferred - LYMPHATIC Lymphatic: no adenopathy - MUSCULOSKELETAL Back Exam: normal inspection, no CVA tenderness, no vertebral tenderness Extremity: non-tender, swelling (BLE pitting edema +4 to knee) - SKIN Integumentary: warm/dry, pallor, rash (quarter sized decubitus central sacrum, foul smelling, about 1cm deep, surrounding erythema.) - NEUROLOGIC Neurologic: grossly normal - PSYCHIATRIC Psych/Mental Status: normal mood/affect, normal thought content, normal thought process, oriented x 3 Progress - PLAN OF CARE/RESULTS Progress/Plan/Lab Results: Vital Signs - 8 hr 10/11/19 15:50 10/11/19 16:57 10/11/19 17:18 Temperature 98.2 F Pulse Rate 155 H 126 H Respiratory Rate 28 H Blood Pressure 102/82 O2 Sat by Pulse Oximetry 96 100 10/11/19 16:44 Influenza Screen - Final Nasopharyngeal Laboratory Results - last 24 hr 10/11/19 10/11/19 10/11/19 16:00 16:00 16:00 WBC 4.81 RBC 3.68 L Hgb 9.7 L Hct 31.7 L MCV 86.1 MCH 26.4 L MCHC 30.6 L RDW Std Deviation 14.9 H Plt Count 262 MPV 10.5 H Immature Gran % (Auto) 0.0 Neut % (Auto) 80.5 H Lymph % (Auto) 11.0 L [place] % (Auto) 8.5 Eos % (Auto) 0.0 Baso % (Auto) 0.0 Immature Gran # (Auto) 0.00 Neut # (Auto) 3.87 Lymph # (Auto) 0.53 L [place] # (Auto) 0.41 Eos # (Auto) 0.00 Baso # (Auto) 0.00 PT INR PTT (Actin FS) Specimen Type Sample Site pH pCO2 pO2 HCO3 Base Excess Oxyhemoglobin ABG O2 Sat (Calculated) ABG O2 Saturation ABG Carboxyhemoglobin ABG Methemoglobin Santiago Test A-a O2 Difference Total Hemoglobin Lactate Liter Flow Blood Gas Modality FiO2 % Sodium 130 L Potassium 5.1 Chloride 91 L Carbon Dioxide 25 Anion Gap 14 BUN 23 H Creatinine 0.6 Estimated GFR/1.73 m2 > 60 BUN/Creatinine Ratio 38 Glucose 154 H Calculated Osmolality 268 Calcium 8.3 L Magnesium 1.8 Total Bilirubin 0.40 AST 23 ALT 15 Alkaline Phosphatase 66 Creatine Kinase 46 Troponin T High Sens Hue-G-Lhjnnxxrzvi Pept Total Protein 6.7 Albumin 3.0 L Globulin 3.7 Albumin/Globulin Ratio 0.8 Plasma Lactate TSH 6.18 H 10/11/19 10/11/19 10/11/19 16:00 16:00 16:00 WBC RBC Hgb Hct MCV MCH MCHC RDW Std Deviation Plt Count MPV Immature Gran % (Auto) Neut % (Auto) Lymph % (Auto) [place] % (Auto) Eos % (Auto) Baso % (Auto) Immature Gran # (Auto) Neut # (Auto) Lymph # (Auto) [place] # (Auto) Eos # (Auto) Baso # (Auto) PT 13.1 INR 0.98 PTT (Actin FS) 35.5 Specimen Type Sample Site pH pCO2 pO2 HCO3 Base Excess Oxyhemoglobin ABG O2 Sat (Calculated) ABG O2 Saturation ABG Carboxyhemoglobin ABG Methemoglobin Santiago Test A-a O2 Difference Total Hemoglobin Lactate Liter Flow Blood Gas Modality FiO2 % Sodium Potassium Chloride Carbon Dioxide Anion Gap BUN Creatinine Estimated GFR/1.73 m2 BUN/Creatinine Ratio Glucose Calculated Osmolality Calcium Magnesium Total Bilirubin AST ALT Alkaline Phosphatase Creatine Kinase Troponin T High Sens Rag-K-Tmhszrysvnf Pept 64228 H Total Protein Albumin Globulin Albumin/Globulin Ratio Plasma Lactate 2.5 H TSH 10/11/19 10/11/19 16:00 17:00 WBC RBC Hgb Hct MCV MCH MCHC RDW Std Deviation Plt Count MPV Immature Gran % (Auto) Neut % (Auto) Lymph % (Auto) [place] % (Auto) Eos % (Auto) Baso % (Auto) Immature Gran # (Auto) Neut # (Auto) Lymph # (Auto) [place] # (Auto) Eos # (Auto) Baso # (Auto) PT INR PTT (Actin FS) Specimen Type ARTERIAL Sample Site R RADIAL pH 7.45 pCO2 38 pO2 172 H HCO3 26.7 H Base Excess 2.3 Oxyhemoglobin 96.6 ABG O2 Sat (Calculated) 12.8 L ABG O2 Saturation 99.8 ABG Carboxyhemoglobin 2.00 ABG Methemoglobin 1.3 Santiago Test YES A-a O2 Difference 37.0 Total Hemoglobin 9.1 L Lactate 1.20 Liter Flow 4.0 Blood Gas Modality CANNULA FiO2 % 36.0 Sodium Potassium Chloride Carbon Dioxide Anion Gap BUN Creatinine Estimated GFR/1.73 m2 BUN/Creatinine Ratio Glucose Calculated Osmolality Calcium Magnesium Total Bilirubin AST ALT Alkaline Phosphatase Creatine Kinase Troponin T High Sens 61 H Uyy-Q-Noqcnromrmv Pept Total Protein Albumin Globulin Albumin/Globulin Ratio Plasma Lactate TSH Orders Category Date Time Status Cardiac Monitoring DIRECTED Care 10/11/19 15:23 Active Ryan Cath Insertion ORDERED Care 10/11/19 17:07 Active Oxygen Therapy- ED Nursing DIRECTED Care 10/11/19 15:23 Active Saline Loc NOW Care 10/11/19 15:23 Active CHEST-PORTABLE [RAD] Stat Exams 10/11/19 15:23 Completed ABG [RESP] Routine Lab 10/11/19 17:00 Completed BLOOD CULTURE [BLDCUL] Stat Lab 10/11/19 16:44 Received CBC WITH ELECTRONIC DIFF [HEME] Stat Lab 10/11/19 16:00 Completed CK PROFILE [SP CHEM] Stat Lab 10/11/19 16:00 Completed COMPREHENSIVE METABOLIC PANEL [CHEM] Stat Lab 10/11/19 16:00 Completed INFLUENZA SCREEN A/B Stat Lab 10/11/19 16:44 Completed LACTATE, PLASMA [CHEM] Q3H Lab 10/11/19 19:00 Uncollected LACTATE, PLASMA [CHEM] Q3H Lab 10/11/19 22:00 Uncollected LACTATE, PLASMA [CHEM] Stat Lab 10/11/19 16:00 Completed MAGNESIUM [CHEM] Stat Lab 10/11/19 16:00 Completed PRO B-NATRIURETIC PEPTIDE Stat Lab 10/11/19 16:00 Completed PROTIME WITH INR [COAG] Stat Lab 10/11/19 16:00 Completed PTT [COAG] Stat Lab 10/11/19 16:00 Completed TROPONIN T HIGH SENSITIVITY Stat Lab 10/11/19 16:00 Completed TSH Stat Lab 10/11/19 16:00 Completed WOUND CULTURE INC GRAM STAIN [RM] Routine Lab 10/11/19 17:15 Received 0.9% Sodium Chloride Inj [Ns] 1,000 ml Med 10/11/19 15:24 Discontinued IV 999 mls/hr Amiodarone [Cordarone] Med 10/11/19 15:24 Discontinued 150 mg IV NOW ONE Amiodarone [Cordarone] Med 10/11/19 16:48 Discontinued 150 mg IV NOW ONE Aspirin Med 10/11/19 15:23 Discontinued 325 mg PO NOW ONE CefEPIME [Maxipime] 1 gm Med 10/11/19 17:15 Discontinued 0.9% Sodium Chloride Inj [Ns] 50 ml IV NOW Digoxin [Lanoxin] Med 10/11/19 16:48 Discontinued 250 microgm IV NOW ONE Furosemide [Lasix] Med 10/11/19 15:25 Discontinued 40 mg IV NOW ONE Oseltamivir [Tamiflu] Med 10/11/19 17:14 Discontinued 75 mg PO NOW ONE Vancomycin 1 gm/Ns Med 10/11/19 17:14 Active 1 gm in 250 ml IV NOW CP/SOB/Palp >45 yrs of Age Stat Oth 10/11/19 15:23 Ordered EKG [EKG] Stat Ther 10/11/19 15:23 Draft Result Diagrams: 10/11/19 16:00 10/11/19 16:00 - REASSESSMENT Reassessment #1 Time Reassessed: 17:18 Status: improving (Patient put on Oxygen, given IVF bolus and lasix d/t hypotension and CHF/volume overload. Likely has sepsis d/t infected sacral decubitus and/or PNE. Also has afib with RVR, given amiodarone x 2 and digoxin IVP. Given Maxepime and vancomycin) - EKG 1 Time of EKG reading by physician:: 15:16 EKG Read and Signed by:: Ralf Cuevas EKG Interpretation (*Must complete 3 of following elements*): Abnormal Rate: 142 Rhythm: afib with rvr [place]: right (deviation) QRS: other (RVH) AL Interval: normal ST Wave: normal Comments: nonspecific st and t wave abnormality - XRAY 1 XRAY: Bilateral XRAY Study: Chest Impression: See EMR Report (EXAM: CHEST-PORTABLE HISTORY: sob TECHNIQUE: Single view COMPARISON: 09/18/2019 FINDINGS: The lungs are well expanded. The heart remains enlarged. There are increased interstitial markings in the mid lungs and right base. These are actually less pronounced than they were on the prior exam. Interval decrease in the size of the right effusion. Vascular prominence has decreased. IMPRESSION: Interval improvement Electronically signed by Hansel Ramirez 10/11/2019 3:46 PM 10/11/19 1546 Interpreting Physician: Hansel Ramirez MD Dictated Date/Time: 10/11/19 1545 cc: Ralf Cuevas MD;) - CONSULTS/PCP/HOSPITALIST Notification #1 *Consult/PCP/Hospitalist*: hospitalist Time Discussed: 17:44 (spoke with chris) Consult Disposition: Will see in ED, Admit Departure - Departure Date of Disposition Decision: 10/11/19 Time of Disposition Decision: 17:19 DIAGNOSIS: Severe sepsis, Sacral decubitus ulcer, stage III, Paroxysmal atrial fibrillation with RVR Acute exacerbation of CHF (congestive heart failure) Qualifiers: Heart failure type: combined systolic and diastolic Qualified Code(s): I50.43 - Acute on chronic combined systolic (congestive) and diastolic (congestive) heart failure Disposition: ADMITTED INPATIENT 09 Certified Medical Emergency: Emergent Condition: Critical Referrals and Follow-Ups: None,PCP [Primary Care Provider] - - Critical Care Note This patient required my direct & personal management of CC.: Yes Total Time (mins): 50 Critical Care Statement: This patient required my direct personal management to treat or rule out processes, the absence of which, could potentiallly result in sudden, clinically significant life or limb threatening deterioration. Attestation - Physician/ HARRY Attestation Patient care was provided by Advanced Practice Provider:: No The physician spent face to face time with patient:: Yes Advanced Practice Provider documentation review:: Supervising physician onsite a nd consulted in the evaluation and care of this patient. The physician did have a face to face encounter with the patient. This chart was documented by the indicated scribe, (Vero Tavarez Scribe) and accurately reflects the services I performed and decisions made by me, Ralf Cuevas MD, as attested by the provider's signature.
--- NOTE | 2019-10-11 18:25 | HISTORY AND PHYSICAL ---
ADDENDUM: Apparently, she was in atrial fibrillation and the rate was accelerated, this in the face of her critical aortic stenosis. This probably explains her dyspnea. She has a sacral decubitus apparently developing, so we will get Wound Care involved as well. We will ask cardiology to help us with management. cc: Santiago Cortes MD
--- NOTE | 2019-10-11 18:31 | SEPSIS: TISSUE PERFUSION ASSMT ---
Sepsis: Tissue Perfusion Asswi - Physical Exam Assessment Date: 10/11/19 Time Assessment Initialized: 18:31 Vital Signs: Last Vital Signs Temp 98.2 F 10/11/19 15:50 Pulse 90 10/11/19 18:29 Resp 15 10/11/19 18:29 BP 88/56 10/11/19 18:29 Pulse Ox 100 10/11/19 18:29 Height 5 ft 2 in Weight 57.153 kg Heart Sounds:: Irregular Capillary Refill Time: Less Than 2 Seconds Peripheral Pulse Evaluation:: radial (R): 1+, radial (L): 1+ Skin Exam:: pale, turgor good - Impression Impression:: Tissue Perfusion Adequate - Plan Plan:: See Orders (Will place on levaphed if BP doesn't come up with 30ml/kg bolus)
[2019-10-11] MEDS ORDERED: LEVOPHED 8 MG in D5 1/2 NS 250 ML IV SCH (18:45)
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
[2019-10-11 19:05] LABS: URINE SOURCE CATH
[2019-10-11 19:19] LABS: BILIRUBIN URINE NEGATIVE (NEGATIVE); BLOOD URINE NEGATIVE (NEGATIVE); COLOR YELLOW; GLUCOSE URINE NEGATIVE (NEGATIVE); KETONE URINE NEGATIVE (NEGATIVE); LEUKOCYTES URINE NEGATIVE (NEGATIVE); NITRITE URINE NEGATIVE (NEGATIVE); PROTEIN URINE NEGATIVE (NEGATIVE); SP GRAVITY URINE 1.011; TURBIDITY URINE CLEAR (CLEAR); UROBILINOGEN URINE NORMAL (NORMAL)
[2019-10-11 19:20] LABS: UR EPITHELIAL CELLS <10 /HPF (<10); URINE BACTERIA NEGATIVE /HPF; URINE RBC <10 /HPF (<10); URINE WBC <10 /HPF (<10)
[2019-10-11] MEDS ORDERED: ZOFRAN IV PRN ×2 (19:25→19:31)
[2019-10-11] MEDS ORDERED: TYLENOL PO PRN ×2 (19:25→19:32)
[2019-10-11] MEDS ORDERED: CARDIZEM IV ONE (19:25)
[2019-10-11] MEDS ORDERED: NS 1,000 ML IV SCH (19:25)
[2019-10-11] MEDS: LEVAQUIN 500 MG/D5W 500 MG/100 ML IVPB IV SCH (20:00)
[2019-10-11] MEDS: PRINIVIL PO SCH (21:00)
[2019-10-11] MEDS ORDERED: PRINIVIL PO SCH (21:00)
[2019-10-12] MEDS ORDERED: LOPRESSOR IV PRN (01:46)
[2019-10-12] MEDS ORDERED: CARDIZEM 100 MG/NS 100 MG/100 ML IVPB IV SCH (02:30)
[2019-10-12] MEDS: NS 1,000 ML IV SCH ×2 (05:19→19:12)
[2019-10-12 06:22] LABS: BASO# 0.01 X1000 (0.0-0.2); BASO% 0.2 % (0.0-0.8); HEMATOCRIT 29.1 % (37.0-47.0); HEMOGLOBIN 8.9 g/dL (12.0-16.0); IMM GRAN# 0.02 X1000 (0.0-0.04); IMM GRAN% 0.3 % (0.0-0.5); LYMPH# 0.55 X1000 (1.2-3.4); LYMPH% 9.4 % (20.5-51.1); MCH 26.3 PG (27-31); MCHC 30.6 g/dL (33-37); MCV 85.8 FL (81-99); MONO# 0.47 X1000 (0.11-0.59); NEUT# 4.81 X1000 (1.4-6.5); NEUT% 82.1 % (42.2-75.2); PLT 252 X1000 (130-400); RBC 3.39 XMIL (4.2-5.4); RDW 14.6 % (11.5-14.5); WBC 5.86 X1000 (4.8-10.8)
[2019-10-12 06:40] LABS: AGAP 12; ALB/GLOB RATIO 0.9; ALBUMIN 2.9 g/dL (3.5-5.0); ALKALINE PHOSPHATASE 63 U/L (32-104); BUN 20 mg/dL (8-22); CALCIUM 7.8 mg/dL (8.8-10.2); CHLORIDE 92 mmol/L (98-107); COSMO 265; CREATININE 0.6 mg/dL (0.5-0.9); ESTIMATED GFR > 60; GLUCOSE 126 mg/dL (70-104); GOT 24 U/L (10-30); GPT 17 U/L (10-36); MAGNESIUM 1.8 mg/dL (1.5-2.7); POTASSIUM 4.5 mmol/L (3.5-5.1); SODIUM 130 mmol/L (136-145); TCO2 26 mmol/L (25-35); TOTAL BILIRUBIN 0.41 mg/dL (0.20-1.00); TOTAL PROTEIN 6.2 g/dL (6.3-8.3)
--- NOTE | 2019-10-12 07:58 | EKG Report ---
Test Performed on : 10/12/2019 06:53:55 AM Test Reason : chest pain Blood Pressure : / mmHG Vent. Rate : 079 BPM Atrial Rate : 102 BPM P-R Int : 000 ms QRS Dur : 106 ms QT Int : 404 ms P-R-T Axes : 000 097 058 degrees QTc Int : 463 ms Atrial fibrillation. Rightward axis ST & T wave abnormality, consider anterior ischemia Abnormal ECG When compared with ECG of 11-OCT-2019 15:16, (Unconfirmed) Vent. rate has decreased BY 63 BPM Confirmed by Shalom MARTÍNEZ, Cale Campos ([id number]) on 10/13/2019 7:29:58 AM
[2019-10-12] MEDS: KLOR-CON PO SCH (08:10)
[2019-10-12] MEDS ORDERED: KLOR-CON PO SCH (09:00)
[2019-10-12] MEDS: PRINIVIL PO SCH ×2 (09:07→19:59)
[2019-10-12] MEDS: TAMIFLU PO SCH ×2 (09:54→19:59)
[2019-10-12] MEDS ORDERED: CORDARONE 150 MG/D5W 150 MG/100 ML IV.SOLN IV ONE (10:39)
[2019-10-12] MEDS ORDERED: CORDARONE 360 MG/D5W 360 MG/200 ML IV.SOLN IV ONE (11:00)
[2019-10-12] MEDS: LASIX IV SCH ×2 (11:04→19:59)
[2019-10-12] MEDS: LOVENOX SUBQ SCH ×2 (11:04→23:15)
--- NOTE | 2019-10-12 12:34 | PROGRESS NOTE ---
DATE: 10/12/2019 SUBJECTIVE: Ms. Cho looks better. She, I think, is feeling a little bit better. Was sleeping, but easy to arouse. She recognized who I was and knew where she was. OBJECTIVE: Vital Signs: Temp 97 degrees, pulse 90, respirations 17, blood pressure 126/72. HEENT: Pupils are equal. Neck: No distended neck veins. Lungs: Clear in all lung galvez. Cardiovascular: It is difficult to hear her aortic murmur. She is in an irregular rhythm, irregular rate, consistent with atrial fibrillation. Abdomen: Soft. Skin: Warm and dry. Extremities: No pedal edema. ASSESSMENT AND PLAN: Her electrocardiogram shows that she is in atrial fibrillation. There is nonspecific T-wave inversion in the anterior leads. She has underlying aortic stenosis, which is severe, and they are planning on doing a transaortic valvular replacement on 10/15/2019. She presented with atrial fibrillation, and rate was a little accelerated, and I think that is probably what has tipped her over. She also has underlying influenza. Cardiology is involved. Currently, we are giving her amiodarone. She was given a 360 mg intravenous dose, and then she got 540 mg of intravenous amiodarone. I am not sure if she is getting amiodarone drip at this time though. She is also on diltiazem drip. We are giving her Lasix 40 mg intravenously twice daily. We have put her on some Levaquin for the possibility of a bacterial pneumonia, and we are giving her Tamiflu at 75 mg by mouth twice daily. LABORATORY DATA: This morning, hematocrit 29, hemoglobin 8.9, white blood cell count 5860, platelet count 252,000. Sodium 130, potassium 4.5, chloride 92, BUN 20, creatinine 0.6. Blood sugars 126, 120, 160. cc: Santiago Cortes MD
--- NOTE | 2019-10-12 12:50 | CONSULTATION ---
DATE OF CONSULTATION: 10/12/2019 IMPRESSION: 1. Acute on chronic congestive heart failure in setting of severe aortic stenosis and recent onset of atrial fibrillation. 2. Atrial fibrillation of recent onset, initially with rapid ventricular rate. Heart rate now better controlled. 3. Influenza positive. 4. Recent hospitalization for congestive heart failure with patient found to have severe aortic stenosis. Transcatheter aortic valve replacement planned for early next month. 5. Hypertension. 6. Hyperlipidemia. RECOMMENDATIONS: 1. Diurese with IV Lasix. 2. Initiate anticoagulation with Lovenox anticipating significant potential for needing to have cardioversion soon. 3. Initiate amiodarone. HISTORY: This 89-year-old, white female with past history of congestive heart failure related to severe aortic stenosis, hypertension, hyperlipidemia, recent congestive heart failure found to be related to severe aortic stenosis, hypertension and hyperlipidemia, was transferred from [facility] for further management of increasing dyspnea. She relates increase in shortness of breath rather abruptly yesterday. She relates feeling weak. There has been no chest pain. She has had some cough and senses that she has some sputum, but is unable to get this up. She was found to be in atrial fibrillation with rapid ventricular rate. She received IV amiodarone x2 doses as well as metoprolol. Heart rate has come under better control. She was also thought to possibly have sepsis, and was given IV fluids as part of this protocol. When I see her she relates some shortness of breath and continues to have cough. Heart rate is better controlled, but she remains in atrial fibrillation. PAST MEDICAL HISTORY: 1. Recent congestive heart failure related to severe aortic stenosis. TAVR planned for early next month. 2. Hypertension. 3. Hyperlipidemia. 4. Type 2 diabetes mellitus. PAST SURGICAL HISTORY: 1. Repair of right forearm fracture in 1986. 2. Hip fracture in November 2013. 3. Total knee arthroplasty. 4. She is allergic or intolerant to penicillin. MEDICATIONS PRIOR TO ADMISSION: As listed. 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 She has history of previous cigarette use, but discontinued this several years ago. She is a . FAMILY HISTORY: Negative for premature coronary disease. REVIEW OF SYSTEMS: Pulmonary: Noteworthy for shortness of breath, as well as nonproductive cough. Gastrointestinal: Noncontributory. Constitutional: Noteworthy for weakness, but no fever. Remainder of review of systems negative/noncontributory beyond history of present illness with 14 total systems reviewed. PHYSICAL EXAMINATION: General: This is a thin elderly white female in no distress on supplemental oxygen. Vital signs: Blood pressure 126/72, heart rate 90 with ECG monitor showing atrial fibrillation. Oxygen saturation 100% on nasal cannula oxygen at 4 L/minute. HEENT exam: Extraocular movements appear intact. Mucous membranes are moist. Neck: Supple without discernible jugular distention. Chest: Auscultation of the chest reveals bibasilar inspiratory crackles. Cardiac Exam: Reveals a regular rate and rhythm with somewhat distant heart sounds. A grade 2/6 crescendo/decrescendo systolic murmur is noted at the right upper sternal border. No gallop could be appreciated. Abdomen: Soft. Bowel sounds normal. Extremities: Without edema. Neurologic Exam: Reveals her to be alert and responsive. Speech is fluent. She moves all 4 extremities equally well. Skin: Warm and dry. Psychiatric Exam: Reveals mood to be appropriate. PERTINENT DATA: Twelve lead EKG obtained on presentation yesterday demonstrates atrial fibrillation with rapid ventricular rate of 142 beats per minute, right axis deviation, and nonspecific ST and T-wave abnormality. LABORATORY DATA: Includes a white blood cell count of 5.86, hematocrit 29.1 hemoglobin 8.9, platelet count 252. Sodium 130, potassium 4.5, chloride 92, carbon dioxide 26. BUN 20, creatinine 0.6, glucose 126. Pro B-natriuretic peptide level 14,454. Troponin-T high sensitivity 81. Albumin 2.9. cc: MD Santiago Baldwin MD
[2019-10-12] MEDS: SANTYL OINT TOP SCH (13:11)
[2019-10-12] MEDS ORDERED: CORDARONE 540 MG in D5W 289.2 ML IV ONE (17:00)
[2019-10-12] MEDS: LEVAQUIN 500 MG/D5W 500 MG/100 ML IVPB IV SCH (19:58)
[2019-10-13 07:02] LABS: HEMATOCRIT 32.7 % (37.0-47.0); HEMOGLOBIN 10.2 g/dL (12.0-16.0); MCH 27.1 PG (27-31); MCHC 31.2 g/dL (33-37); MCV 86.7 FL (81-99); MPV 10.4 FL (7.4-10.4); RBC 3.77 XMIL (4.2-5.4); RDW 14.8 % (11.5-14.5); WBC 5.13 X1000 (4.8-10.8)
[2019-10-13 07:18] LABS: AGAP 11; BUN 12 mg/dL (8-22); CALCIUM 8.4 mg/dL (8.8-10.2); CHLORIDE 90 mmol/L (98-107); COSMO 265; CREATININE 0.6 mg/dL (0.5-0.9); ESTIMATED GFR > 60; GLUCOSE 111 mg/dL (70-104); MAGNESIUM 1.7 mg/dL (1.5-2.7); POTASSIUM 4.1 mmol/L (3.5-5.1); SODIUM 132 mmol/L (136-145); TCO2 31 mmol/L (25-35)
[2019-10-13] MEDS: NS 1,000 ML IV SCH (07:19)
--- NOTE | 2019-10-13 07:26 | EKG Report ---
Test Performed on : 10/13/2019 06:57:39 AM Test Reason : afib Blood Pressure : / mmHG Vent. Rate : 098 BPM Atrial Rate : 074 BPM P-R Int : 000 ms QRS Dur : 108 ms QT Int : 376 ms P-R-T Axes : 000 109 031 degrees QTc Int : 480 ms Atrial fibrillation. Incomplete right bundle branch block Possible Right ventricular hypertrophy Nonspecific ST and T wave abnormality Abnormal ECG When compared with ECG of 12-OCT-2019 06:53, (Unconfirmed) No significant change was found Confirmed by Shalom MARTÍNEZ, Cale Campos ([id number]) on 10/13/2019 7:31:46 AM
[2019-10-13] MEDS: KLOR-CON PO SCH (08:30)
[2019-10-13] MEDS: LASIX IV SCH (08:30)
[2019-10-13] MEDS: TAMIFLU PO SCH (08:30)
[2019-10-13] MEDS: SANTYL OINT TOP SCH (08:31)
[2019-10-13] MEDS: PRINIVIL PO SCH (08:37)
--- NOTE | 2019-10-13 10:01 | PROGRESS NOTE ---
DATE: 10/13/2019 SUBJECTIVE: Ms. Cho is doing better. Blood pressure is improved. They thought about cardioverting her today. I think they are going to postpone that. OBJECTIVE: Vital Signs: Temperature is 97.6 degrees, pulse 90, respirations 30, blood pressure 131/78. HEENT: Pupils are equal and round. Lungs: Clear in all lung galvez. Cardiovascular: Regular rhythm and rate without murmur or S3. Abdomen: Soft. Skin: Warm and dry. Urine output is 7000 mL. ASSESSMENT AND PLAN: 1. Atrial fibrillation with rapid ventricular rate. Looking to control the rate and possibly do cardioversion, but may delay that. In discussing, I think Dr. Plaza maybe doing a hospital- hospital transfer closer to her time for valve replacement. 2. Critical severe aortic stenosis. Adjusting her medications. REVIEW OF ORDERS: Currently, she is on a Cardizem drip, getting Lovenox 60 mg subcutaneously every 12 hours, Lasix 40 mg IV twice a day, Levaquin 500 mg IV every 24 hours, Prinivil 10 mg p.o. b.i.d., Tamiflu 75 mg p.o. b.i.d., MiraLAX 17 grams b.i.d., potassium chloride 40 mEq daily, and she is on amiodarone drip. LABORATORY DATA: White count 5130, hematocrit 32, platelet count 235,000. Sodium 132, potassium 4.1, chloride 90, BUN 12, creatinine 0.6. Her diabetes mellitus, blood sugar is under good control, last several sugars 139, 107, 111, and 118. cc: Santiago Cortes MD
[2019-10-13] MEDS: LOVENOX SUBQ SCH (10:23)
[2019-10-13] MEDS: CORDARONE PO SCH ×3 (10:23→16:42)
[2019-10-13 19:09] VITALS: BP 132/85
--- NOTE | 2019-10-13 19:48 | DISCHARGE SUMMARY ---
ADMISSION DATE: 10/11/2019 DISCHARGE DATE: 10/13/2019 Ms. Faye came in October 11, 2019. She came from [facility]. The patient well known to me, an 89-year-old. She was found recently to have severe critical aortic stenosis and was planning on getting a transaortic valvular replacement the week of October. She developed a respiratory illness and found out she had influenza and went into atrial fibrillation with rapid rate, and blood pressure started dropping and hypoxemic respiratory failure. PAST MEDICAL HISTORY: 1. Diabetes mellitus type 2. 2. Hyperlipidemia. 3. Hypertension. 4. Right forearm fracture back in 1986. 5. Hip fracture, admitted back in November 2013 and went to rehab at the time. 6. 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 She had total knee arthroplasty. 7. Found critical aortic stenosis recently. Admission diagnosis severe aortic stenosis with atrial fibrillation and hypotension. Upper respiratory infection with influenza. She was started on some Tamiflu. We were careful to give her some fluid and we put her on IV Cardizem for rate control. Cardiology was involved and we put her into ICU. She showed some improvement. The rate came down and [facility] was contacted. Dr. Plaza wanted to transfer over to [facility] for further management and get her ready for transaortic valvular replacement. DISCHARGE MEDICATIONS: She is on Tylenol 650 mg every 6 hours p.r.n., amiodarone 200 mg p.o. t.i.d. She did have a little sacral breakdown, and we are giving her some Santyl ointment and topical treatment. She is getting Lasix 40 mg IV b.i.d. She gets Lovenox 60 mg subcu q.12. She is getting Levaquin 500 mg IV q.24 hours, Prinivil 10 mg p.o. b.i.d., Lopressor 5 mg IV q.4 hours p.r.n., norepinephrine bitartrate 8 mg in 258 mL and was getting a norepinephrine drip, Tamiflu 75 mg b.i.d., MiraLAX 17 mg p.o. b.i.d., Klor-Con 40 mEq p.o. daily. LABORATORY DATA: From today, white count 5130, hematocrit 32, platelet count was 235,000. Chemistry: Sodium 132, potassium 4.1, chloride 90, BUN 12, creatinine 0.6. Blood sugar 107, 111, 118, 132, and 149. So, we will discharge her to [place]. Continue these medications and to service of Dr. Plaza, a cardiovascular surgeon. cc: Santiago Cortes MD MTDD
[2019-10-13] MEDS ORDERED: MIRALAX PO SCH (20:00)
== END 2019-10-13 19:09 | disposition short-term general hospital (02) | DRG 291 ==
LOC: ED 15:07 → EDIPHOLD 22:05 → SUPCPDRO 22:05 → ICU 10-12 05:02
PROVIDERS: ADMIT Emergency Medicine; ATTEND Emergency Medicine